=== PATIENT | female | born 1960 | race Caucasian/White ===

== ENCOUNTER → 2017-05-11 | Outpatient (CLI) | payer BC | LOC: COL.VAS 14:37 | DX: I35.1 Nonrheumatic aortic (valve) insufficiency (principal) ==

== ENCOUNTER → 2018-03-25 | Outpatient (CLI) | payer BC | LOC: MC.RAD 14:20 | DX: Z12.31 Encounter for screening mammogram for malignant neoplasm of breast (principal); Z98.82 Breast implant status ==

== ENCOUNTER 2019-02-25 16:29 | Emergency (ER) | payer BC ==
[~2019-02-25] VITALS: Ht 167.6 cm; Wt 74.5 kg
[2019-02-25 16:38] VITALS: TEMP 98.1
[2019-02-25] MEDS ORDERED: HORMONE REPLACEMENT (16:40)
[2019-02-25] MEDS ORDERED: ZOCOR 20MG20 MG PO (16:41)
[2019-02-25] MEDS ORDERED: PRINZIDE 12.5 M1 TA1 PO (16:41)
[2019-02-25] MEDS ORDERED: TOPROL XL 50MG50 MG PO (16:41)
[2019-02-25] MEDS ORDERED: WELLBUTRIN 75MG75 MG PO (16:42)
[2019-02-25] MEDS ORDERED: LOPREEZA1 TAB (16:43)
[2019-02-25] MEDS ORDERED: PERCOCET 325 MG1 TA3 PO (19:56)
[2019-02-25] MEDS ORDERED: CRUTCHES MC (19:56)
[2019-02-25 20:51] VITALS: BP 122/88; PULSE 66
== END 2019-02-25 20:55 | disposition home or self-care (01) ==
LOC: COL.ER 16:29
DX: S82.842A Displaced bimalleolar fracture of left lower leg, initial encounter for closed fracture (principal); I10 Essential (primary) hypertension; Z88.1 Allergy status to other antibiotic agents; V89.1XXA Person injured in unspecified nonmotor-vehicle accident, nontraffic, initial encounter; Y93.55 Activity, bike riding; Y92.480 Sidewalk as the place of occurrence of the external cause
CPT/HCPCS: J2250; J2405; J2704; J3010; Q4045

== ENCOUNTER 2019-06-02 15:30 | Outpatient (RCR) | payer BC ==
[~2019-06-02 15:30] MED LIST: CRUTCHES MC; HORMONE REPLACEMENT; LOPREEZA1 TAB; PERCOCET 325 MG1 TA3 PO; PRINZIDE 12.5 M1 TA1 PO; TOPROL XL 50MG50 MG PO; WELLBUTRIN 75MG75 MG PO; ZOCOR 20MG20 MG PO
== END 2019-07-23 | disposition home or self-care (01) ==
LOC: WSC
DX: S82.842D Displaced bimalleolar fracture of left lower leg, subsequent encounter for closed fracture with routine healing (principal)

== ENCOUNTER → 2019-08-05 | Outpatient (CLI) | payer BC | LOC: MC.RAD 16:38 | DX: Z12.31 Encounter for screening mammogram for malignant neoplasm of breast (principal) ==

== ENCOUNTER 2019-09-02 14:15 | Outpatient (RCR) | payer BC | END 2019-11-02 | disposition home or self-care (01) | LOC: WSPT | DX: Z98.890 Other specified postprocedural states (principal) ==

== ENCOUNTER → 2020-06-24 | Outpatient (CLI) | payer BC | LOC: COL.CARD 06-23 08:00 | DX: R00.2 Palpitations (principal) ==

== ENCOUNTER → 2020-08-31 | Outpatient (CLI) | payer BC | LOC: MC.RAD 16:27 | DX: Z12.31 Encounter for screening mammogram for malignant neoplasm of breast (principal); Z98.82 Breast implant status ==

== ENCOUNTER → 2022-08-24 | Outpatient (CLI) | payer BC | LOC: MC.RAD 11:29 | DX: Z12.31 Encounter for screening mammogram for malignant neoplasm of breast (principal) ==

== ENCOUNTER → 2023-11-13 | Outpatient (CLI) | payer BC | LOC: MC.RAD 15:41 | DX: Z12.31 Encounter for screening mammogram for malignant neoplasm of breast (principal) ==